=== PATIENT | male | born 1950 | race Caucasian/White ===

== ENCOUNTER 2019-02-08 10:11 | Emergency (ER) | payer OTHER ==
[~2019-02-08] VITALS: Ht 185.4 cm; Wt 100.7 kg
[~2019-02-08 10:11] MED LIST: ASPIR 8181 MG PO; METFORMIN HCL500 MG PO; ONGLYZA5 MG PO; PREVACID30 MG PO; PRINIVIL40 MG PO
[2019-02-08] MEDS ORDERED: AMARYL4 MG PO (10:25)
[2019-02-08] MEDS ORDERED: BASAGLAR K100 UNIT/1 (10:26)
[2019-02-08] MEDS ORDERED: CHLORTHALIDONE25 MG PO (10:27)
[2019-02-08] MEDS ORDERED: SIMVASTATIN80 MG PO (10:28)
[2019-02-08 10:30] LABS: ABSOLUTE NEUTROPHILS 8.4 thou/uL (1.4-8.2); BASOPHILS 1.2 % (0.0-2.0); EOSINOPHILS 1.5 % (0.0-3.0); HEMATOCRIT 35.3 % (42.0-52.0); LYMPHOCYTES 12.6 % (24.0-44.0); MCH 29.5 pg (26.0-34.0); MCHC 33.9 g/dL (28.0-37.0); MCV 86.9 fL (80.0-100.0); MONOCYTES 6.6 % (1.0-8.0); PLATELET COUNT 551 thou/uL (150-400); POLYS 78.1 % (36.0-66.0); RBC 4.06 mil/uL (4.50-6.00); RDW 13.8 % (10.5-14.5); WBC 10.7 thou/uL (4.0-11.0)
[2019-02-08] MEDS ORDERED: PRADAXA150 MG PO (10:30)
[2019-02-08] MEDS ORDERED: DILTIAZEM ER180 M1 PO (10:31)
[2019-02-08] MEDS ORDERED: SERTRALINE HCL25 M1 PO (10:32)
[2019-02-08] MEDS ORDERED: OMEPRAZOLE 20 M20 M1 PO (10:32)
[2019-02-08 10:45] LABS: ANION GAP 12 mmol/L (7-16); BUN 23 mg/dL (7-18); CALCIUM 9.9 mg/dL (8.5-10.1); CHLORIDE 91 mmol/L (98-107); CO2 21 mmol/L (21-32); CREATININE 1.6 mg/dL (0.7-1.3); GLUCOSE 387 mg/dL (74-106); POTASSIUM 4.3 mmol/L (3.5-5.1); SODIUM 124 mmol/L (136-145)
[2019-02-08 10:55] LABS: MAGNESIUM 1.3 mg/dL (1.8-2.4); TROPONIN-I <0.06 ng/mL (<0.06)
[2019-02-08 12:47] VITALS: BP 97/76
--- NOTE | 2019-02-09 09:20 | EKG ---
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[facility] : 1950 Requested By: Rodolfo Tapia Order Number: [id number] MD: Chet Montenegro Measurements Intervals [place] Rate: 108 P: [place]: QRS: 14 QRSD: 80 T: 29 QT: 344 QTc: 461 Interpretive Statements Atrial fibrillation Baseline wander in lead(s) V2 Compared to ECG 04/01/2006 06:31:16 Sinus rhythm no longer present Electronically Signed On 02-09-2019 9:20:00 CDT by Chet Montenegro [email or web address] <ELECTRONICALLY SIGNED> By: Chet Montenegro MD, [facility] 02/09/19 0920 1012 1012 Chet Montenegro MD, FACC /EPI
== END 2019-02-08 12:47 | disposition home or self-care (01) ==
LOC: ER 10:11
PROVIDERS: Emergency Medicine
DX: E87.1 Hypo-osmolality and hyponatremia (principal); Z90.49 Acquired absence of other specified parts of digestive tract; Z88.2 Allergy status to sulfonamides

== ENCOUNTER 2019-02-16 13:35 | Emergency (ER) | payer OTHER ==
[~2019-02-16] VITALS: Ht 185.4 cm; Wt 94.8 kg
[~2019-02-16 13:35] MED LIST changes: +AMARYL4 MG PO; +BASAGLAR K100 UNIT/1; +CHLORTHALIDONE25 MG PO; +DILTIAZEM ER180 M1 PO; +OMEPRAZOLE 20 M20 M1 PO; +PRADAXA150 MG PO; +SERTRALINE HCL25 M1 PO; +SIMVASTATIN80 MG PO
[2019-02-16 14:04] LABS: ABSOLUTE NEUTROPHILS 5.5 thou/uL (1.4-8.2); BASOPHILS 1.1 % (0.0-2.0); EOSINOPHILS 3.2 % (0.0-3.0); HEMOGLOBIN 13.4 gm/dL (14.0-18.0); LYMPHOCYTES 20.8 % (24.0-44.0); MCH 28.8 pg (26.0-34.0); MCHC 33.6 g/dL (28.0-37.0); MCV 85.7 fL (80.0-100.0); PLATELET COUNT 528 thou/uL (150-400); POLYS 67.9 % (36.0-66.0); RBC 4.66 mil/uL (4.50-6.00); WBC 8.2 thou/uL (4.0-11.0)
[2019-02-16 14:11] LABS: ANION GAP 13 mmol/L (7-16); BUN 29 mg/dL (7-18); CHLORIDE 93 mmol/L (98-107); CO2 23 mmol/L (21-32); CREATININE 1.5 mg/dL (0.7-1.3); GLUCOSE 231 mg/dL (74-106); POTASSIUM 4.2 mmol/L (3.5-5.1); SODIUM 129 mmol/L (136-145)
[2019-02-16 14:21] LABS: ALBUMIN 3.2 g/dL (3.4-5.0); LIPASE 362 U/L (73-393); SGOT 28 U/L (15-37); SGPT 37 U/L (30-65); TOTAL BILIRUBIN 0.8 mg/dL (<0.1-1.0); TOTAL PROTEIN 7.7 g/dL (6.4-8.2); TROPONIN-I <0.06 ng/mL (<0.06)
[2019-02-16] MEDS ORDERED: VENTOLIN HFA 1818 GM INH (15:11)
[2019-02-16 15:47] VITALS: BP 111/63
--- NOTE | 2019-02-17 08:36 | EKG ---
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: : 1950 Requested By: Efren Wilkerson Order Number: [id number] MD: Chet Montenegro Measurements Intervals [place] Rate: 100 P: [place]: QRS: 20 QRSD: 85 T: 14 QT: 335 QTc: 432 Interpretive Statements Atrial fibrillation Borderline T abnormalities, inferior leads Compared to ECG 02/08/2019 10:12:43 No significant change was found Electronically Signed On 02-17-2019 8:36:20 CDT by Chet Montenegro [email or web address] <ELECTRONICALLY SIGNED> By: Chet Montenegro MD, [facility] 02/17/19 0836 1347 1347 Chet Montenegro MD, FACC /EPI
== END 2019-02-16 16:05 | disposition home or self-care (01) ==
LOC: ER 13:35
PROVIDERS: Emergency Medicine
DX: I48.91 Unspecified atrial fibrillation (principal); E87.1 Hypo-osmolality and hyponatremia; E11.9 Type 2 diabetes mellitus without complications; R79.89 Other specified abnormal findings of blood chemistry; Z86.711 Personal history of pulmonary embolism; Z90.49 Acquired absence of other specified parts of digestive tract; Z96.651 Presence of right artificial knee joint; Z88.2 Allergy status to sulfonamides